=== PATIENT | male | born 1950 | race Caucasian/White ===

== ENCOUNTER 2018-04-18 17:17 | Inpatient (IN) | payer MEDICARE, OTHER ==
[2018-04-18] MEDS ORDERED: NS 0.9% 1000 ML* 1,000 ML IV ONE (17:41)
[2018-04-18] MEDS ORDERED: Morphine INJ* 2 MG/ML 1 ML SYRINGE (TWO MG - NEW SYRINGE VERSION) IV ONE (17:41)
--- NOTE | 2018-04-18 17:47 | ED ---
Abdominal Pain/Male - HPI Summary HPI Summary: This is scribe Alireza Muellerdanny documenting for attending Pola Ivy MD. Patient is a 67 y/o M w/ c/o abdominal pain onsetting 2 days ago. Patient went to [facility] where he had an ultrasound and was sent to ED for further work-up. In room, pain is rated 7/10. Pain is noted to be located at RUQ with no radiation to other areas. Patient notes nausea but denies V/D, fever, chills , constipation. He denies abdominal surgeries. Patient denies HTN, HLD, diabetes , CA and CAD. He states he had surgery for a deviated septum, vasectomy. Patient denies smoking and drug use but drinks occasionally. FHx of HTN, HLD, and diabetes is noted. Allergies and home medications are reviewed. - History of Current Complaint Chief Complaint: EDAbdPain Stated Complaint: ABD PAIN Time Seen by Provider: 04/18/18 17:37 Hx Obtained From: Patient Onset/Duration: Lasting Days - 2 days ago Timing: Constant Severity Currently: Severe Pain Intensity: 7 Pain Scale Used: 0-10 Numeric - 7/10 Location: Discrete At: RUQ Radiates: No Aggravating Factor(s): Nothing Alleviating Factor(s): Nothing Associated Signs And Symptoms: Positive: Nausea, Other - NEGATIVE: chills. Negative: Fever, Constipation, Vomiting, Diarrhea - Allergies/Home Medications Allergies/Adverse Reactions: Allergies Allergy/AdvReac Type Severity Reaction Status Date / Time iodine Allergy Unknown Verified 04/18/18 17:23 Reaction Details shellfish derived Allergy Unknown Verified 04/18/18 17:23 Reaction Details Home Medications: Home Medications Aspirin [Adult Aspirin Regimen] 81 mg PO DAILY 04/18/18 [History Confirmed 04/18] Ibuprofen [Advil] 200 mg PO DAILY 04/18/18 [History Confirmed 04/18/18] PMH/Surg Hx/FS Hx/Imm Hx Endocrine/Hematology History: Reports: Other Endocrine/Hematological Disorders - NEGATIVE: HLD Denies: Hx Diabetes Cardiovascular History: Denies: Hx Coronary Artery Disease, Hx Hypertension, Hx Myocardial Infarction - Surgical History Surgery Procedure, Year, and Place: vasectomy, surgery for deviated septum Infectious Disease History: No Infectious Disease History: Denies: Traveled Outside the [place] in Last 30 Days - Family History Known Family History: Positive: Hypertension, Diabetes, Other - HLD Review of Systems Negative: Fever, Chills Positive: Abdominal Pain - RUQ, Nausea, Other - NEGATIVE: constipation. Negative: Vomiting, Diarrhea All Other Systems Reviewed And Are Negative: Yes Physical Exam - Summary Physical Exam Summary: VITAL SIGNS: Reviewed. GENERAL: Patient is a well-developed and nourished male who is lying comfortable in the stretcher. Patient is not in any acute respiratory distress. HEAD AND FACE: Normocephalic and atraumatic. EYES: PERRLA, EOMI x 2, No injected conjunctiva. EARS: Hearing grossly intact. Ear canals and tympanic membranes are WNL. MOUTH: Oropharynx within normal limits. NECK: Supple, trachea is midline, no adenopathy, no JVD. CHEST: Symmetric, no tenderness at palpation LUNGS: Clear to auscultation bilaterally. No wheezing or crackles. CVS: RRR, S1 and S2 present, no murmurs or gallops appreciated. ABDOMEN: Soft, RUQ tenderness, Lee's signs are present. No signs of distention. Positive bowel sounds. No rebound no guarding, and no masses palpated. No abdominal bruit or pulsations. EXTREMITIES: FROM in all major joints, no edema, no cyanosis or clubbing. NEURO: Alert and oriented x 3. No acute neurological deficits. Speech is normal. SKIN: Dry and warm Triage Information Reviewed: Yes Vital Signs On Initial Exam: Initial Vitals Temp Pulse Resp BP Pulse Ox 101.1 F 80 20 157/92 98 04/18/18 17:19 04/18/18 17:19 04/18/18 17:19 04/18/18 17:19 04/18/18 17:19 Vital Signs Reviewed: Yes Diagnostics - Vital Signs Vital Signs Temp Pulse Resp BP Pulse Ox 04/18/18 17:19 101.1 F 80 20 157/92 98 - Laboratory Result Diagrams: 04/18/18 17:49 04/18/18 17:49 Lab Statement: Any lab studies that have been ordered have been reviewed, and results considered in the medical decision making process. - EKG 1750 Cardiac Rate: NL - Rate is 75 BPM EKG Rhythm: Sinus Rhythm EKG Interpretation: no ST elevation; RBBB Abdominal Pain Fem Course/Dx - Course Assessment/Plan: This patient is a 67-year-old male who presents to the emergency room after he was transferred from the primary care physicians office with a chief complaint of having right upper quadrant pain. Patient reports that he had an ultrasound that he was sent here for further workup and management. The patient reports that the pain started yesterday and has worsened. Patient has nausea without vomiting. Patient denies any fever or chills. Test results shows a white blood cell count of 12.5, glucose of 124, total bili 1.4, CRP of 141, amylase 23 and lipase is less than 10. Right upper quadrant ultrasound impression: Distended gallbladder with sludge and possible stone in the gallbladder neck, there was a positive sonographic [place] sign rescind the possibility of acute cholecystitis. Possibly nonobstructing right renal calculus. In the ER course the patient was given IV fluids. Dr. Su from surgery came and assessed the patient immediately and he accepted the patient admission. The patient is hemodynamically stable, alert and oriented 3. - Diagnoses Provider Diagnoses: Acute cholecystitis - Provider Notifications Discussed Care Of Patient With: Erasto Su Time Discussed With Above Provider: 18:00 Instructed by Provider To: Other - Dr. Su reviewed patient and discussed the case with Dr. Ivy at 18:00. Dr. Su [place] [facility] [place]. Discharge - Sign-Out/Discharge Documenting (check all that apply): Patient Departure - admit - Discharge Plan Condition: Stable Disposition: ADMITTED TO [facility]
[2018-04-18 17:59] LABS: ABS Basophils 0.1 10^3/ul (0-0.2); ABS Eosinophils 0.1 10^3/ul (0-0.6); ABS Lymphocytes 1.2 10^3/ul (1.0-4.8); ABS Monocytes 0.9 10^3/ul (0-0.8); ABS Neutrophils 10.3 10^3/ul (1.5-7.7); ABS Nucleated RBC 0 10^3/ul; Eosinophil % 0.5 % (0-6); Hematocrit 44 % (42-52); Lymphocyte % 9.3 % (25-47); Mean Corpuscular HGB Conc 34 g/dl (31-36); Mean Corpuscular Hemoglobin 29 pg (27-31); Mean Corpuscular Volume 87 fL (80-94); Nucleated Red Blood Cells % 0; Platelet Count 180 10^3/ul (150-450); Red Cell Distribution Width 13 % (10.5-15); White Blood Count 12.5 10^3/ul (3.5-10.8)
[2018-04-18 18:17] LABS: EGFR Non-African American 68.9 (>60)
[2018-04-18] MEDS ORDERED: Acetaminophen TAB* 325 MG PO ONE (18:31)
[2018-04-18] MEDS ORDERED: Piperacillin/Tazobac ADVAN(*) 3.375 GM in NS 0.9% 100 ML* 100 ML IVPB ONE ×4 (18:32)
[2018-04-18] MEDS ORDERED: Ondansetron INJ* 2 MG/ML VIAL IV PRN (18:32)
[2018-04-18] MEDS ORDERED: Zosyn per Pharmacy* NOTE FOLLOW UP SCH (19:00)
[2018-04-18] MEDS: NS 0.9% 1000 ML* 1,000 ML IV SCH (19:55)
--- NOTE | 2018-04-18 21:27 | HP ---
CC: [facility]; Mesfin Nunez MD, [facility] ADMISSION HISTORY AND PHYSICAL: DATE OF ADMISSION: 04/18/18 REASON FOR ADMISSION: Right upper quadrant abdominal pain with acute calculous cholecystitis. HISTORY OF PRESENT ILLNESS: Mr. Tavares Lizama is a healthy 67-year-old gentleman, who on Saturday night developed some epigastric and right upper quadrant abdominal pain radiated through to his back. This persisted and worsened over the next 48 hours and he presented to his primary care provider's office, Dr. Nunez today where he was seen and sent for an ultrasound of his gallbladder. I did review these images. This shows a thickened gallbladder wall with a positive Lee sign. There was noted to be gallbladder sludge as well as a possible stone in the gallbladder neck. Common bile duct measured 0.3 mm in diameter. In addition, he says about 4 or 5 times over the past year or so he has had episodes of epigastric pain mainly at night after eating that would last several hours and then resolve. He never sought medical care for this and in between episodes he was completely asymptomatic. He was noted to have a temperature of 101 in the emergency room and right upper quadrant abdominal discomfort. Laboratory values included a white blood cell count of 12,500 and with a mild elevation of his total bilirubin to 1.4 with a C-reactive protein of 141. Lipase was less than 10. Surgical consultation was obtained. PAST MEDICAL HISTORY: Unremarkable. PAST SURGICAL HISTORY: Vasectomy. ALLERGIES: He is allergic to SHELLFISH and IODINE. 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 He is . He does not use tobacco. He drinks alcohol 4 to 5 beers per week. REVIEW OF SYSTEMS: Cerebrovascular: No dizziness or visual disturbances. Cardiovascular: No chest pain, shortness of breath. Pulmonary: No wheezing or hemoptysis. GI: As per above. He does state in the past year and half he has had 4 to 5 episodes of epigastric and right upper quadrant abdominal pain mainly at night. It lasts several hours, but it resolves. PHYSICAL EXAMINATION GENERAL: He is a slender male, appears to be in no apparent distress. VITAL SIGNS: Temperature 101.1, pulse 80, blood pressure 157/92, oxygen saturation 98%. HEENT: Sclerae are anicteric. Oral mucosa is slightly dry. LUNGS: Clear to auscultation with normal respiratory effort. HEART: Regular rate and rhythm without murmurs, rubs, or gallops. ABDOMEN: Soft and slightly distended. No prior surgical incisions. He has tenderness in the right upper quadrant with some voluntary guarding. There is no mass noted. He has no generalized peritoneal signs. PSYCHIATRIC: He is awake, alert, and oriented x3. He has normal judgement and insight. IMPRESSION: Acute calculous cholecystitis. The patient has a leukocytosis, mild elevation in total bilirubin I suspect due to the inflammation. The ultrasound has been reviewed. I discussed these findings with the patient and his and I would recommend admission tonight with initiation of IV antibiotics, IV fluids and keeping him n.p.o. after midnight. I would recommend proceeding with a laparoscopic cholecystectomy tomorrow for definitive treatment of his acute cholecystitis. I discussed the procedure with him and the risks of, but not limited to bleeding , infection, intraabdominal abscess formation, injury to peritoneal and retroperitoneal structures, possibility of bile duct injury requiring further reconstruction, bile leak, abscess, possibility of an open procedure in this situation, the risks of anesthesia, deep vein thrombosis, hospital stay and recovery times were all explained. PLAN: 1. Plan will be admission to the surgical stay unit. 2. We will start him on IV antibiotics. 3. We will keep him n.p.o. after midnight, he will be allowed clear liquids until then. 4. Surgery will be planned in the morning, depending on the available operating room time. [id number]/[facility] #: [id number] MTDD
[2018-04-18] MEDS: ZOSYN 3.375 GM Q8H per EXTENDED INFUSION IVPB SCH ×2 (23:50)
[2018-04-19] MEDS: NS 0.9% 1000 ML* 1,000 ML IV SCH ×3 (03:42→19:53)
[2018-04-19 04:18] LABS: Urine Appearance Clear; Urine Blood Negative (Negative); Urine Color Yellow; Urine Ketones 1+ (Negative); Urine Protein Negative (Negative); Urine Specific Gravity 1.026 (1.010-1.030); Urine Urobilinogen Negative (Negative)
[2018-04-19] MEDS: Morphine INJ* 2 MG/ML 1 ML SYRINGE (TWO MG - NEW SYRINGE VERSION) IV PRN ×2 (04:23→07:31)
[2018-04-19] MEDS ORDERED: Bupivacaine 0.25% W/EPI* 10 ML SDV ONE (07:34)
[2018-04-19] MEDS ORDERED: Midazolam* 1 MG/ML 2 ML VIAL (2 MG) ONE (07:35)
[2018-04-19] MEDS: ZOSYN 3.375 GM Q8H per EXTENDED INFUSION IVPB SCH ×6 (07:35→23:44)
[2018-04-19] MEDS ORDERED: fentaNYL* 50 MCG/ML 2 ML VIAL (100 MCG VIAL) ONE (07:35)
[2018-04-19] MEDS ORDERED: Rocuronium* 10 MG/ML VIAL ONE (07:35)
[2018-04-19] MEDS ORDERED: Dexamethasone IV* 4 MG/ML 1 ML (4 MG) ONE (07:36)
[2018-04-19] MEDS ORDERED: Propofol* 10 MG/ML 20 ML BTL IV PUSH ONE (07:36)
[2018-04-19] MEDS ORDERED: Ondansetron INJ* 2 MG/ML VIAL ONE (07:36)
[2018-04-19] MEDS ORDERED: Famotidine IV* 10 MG/ML 2 ML (20 mg) ONE (07:36)
[2018-04-19] MEDS ORDERED: Succinylcholine* 20 MG/ML 10 ML VIAL ONE (07:40)
[2018-04-19] MEDS ORDERED: Lidocaine 1% INJ* 10 MG/ML 30 ML SDV ONE (07:40)
[2018-04-19] MEDS ORDERED: Sugammadex * 200 MG/2 ML VIAL IV PUSH ONE (08:59)
[2018-04-19] MEDS ORDERED: Naloxone* 0.4 MG/ML 1 ML VIAL IV PRN (09:13)
[2018-04-19] MEDS ORDERED: DiMENhydriNATE IV* 50 MG/ML VIAL IV PUSH PRN (09:13)
[2018-04-19] MEDS ORDERED: Ketorolac INJ* 30 MG/ML 1 ML VIAL ONE (09:13)
[2018-04-19] MEDS ORDERED: fentaNYL* 50 MCG/ML 2 ML VIAL (100 MCG VIAL) IV PRN (09:13)
[2018-04-19] MEDS ORDERED: HYDROmorphone INJ* 0.5 MG/0.5 ML SYRINGE IV PRN (09:13)
--- NOTE | 2018-04-19 09:52 | BRIEFOPN ---
Brief Operative Note - Surgery Procedures: OPERATIVE REPORT PRE-OP: Acute calculous cholecystitis POST-OP: Same PROCEDURE: Laparoscopic cholecystectomy SURGEON: MD Sharlene ANESTHESIA:Local , General Dr. Lira ASST: Mj Chávez MD IVF: 1 liter crystalloid EBL: Min SPECIMEN: Gallbladder DRAIN: #10 ISABELLA in RUQ abdomen WOUND CLASS: 4 COMPLICATIONS: none TO PACU
[2018-04-19] MEDS: oxyCODONE/Acetamin 5/325 MG* TAB PO PRN ×3 (12:14→22:07)
[2018-04-19] MEDS ORDERED: Ketorolac INJ* 15 MG/ML 1 ML VIAL IV PUSH ONE (14:00)
[2018-04-19 21:08] LABS: INR 1.27 (0.77-1.02)
[2018-04-19] MEDS: Heparin VIAL(*) 5000 UNITS/ML VIAL (FIVE THOUSAND) SUBCUT SCH (22:02)
--- NOTE | 2018-04-20 02:43 | OP ---
CC: Dr. Mesfin Nunez, [facility] * DATE OF OPERATION: 04/19/18 - ROOM #338 DATE OF : 50 SURGEON: Erasto Su MD [employer] SUPERVISOR: Johnathon Chávez MD ANESTHESIOLOGIST: Dr. Lira. ANESTHESIA: General and local. PRE-OP DIAGNOSIS: Acute calculous cholecystitis. POST-OP DIAGNOSIS: Acute calculous cholecystitis. OPERATIVE PROCEDURE: Laparoscopic cholecystectomy. ESTIMATED BLOOD LOSS: Minimal. IV FLUIDS: 1 L of crystalloid. WOUND CLASSIFICATION: IV. DRAINS: #10 ISABELLA drain in the right upper quadrant. SPECIMENS: Gallbladder. COMPLICATIONS: None. DESCRIPTION OF PROCEDURE: Written informed consent was obtained, the abdomen was marked with indelible ink and preoperative antibiotics were administered. The patient was taken to the operating room and placed in a supine position. Sequential compression devices and a warming blanket were applied. General anesthesia was administered and abdomen was prepped and draped in the usual sterile fashion. Time-out verification was completed. Initially, a small transverse incision was made just above the umbilicus at the midline and the peritoneal cavity was entered under direct vision. A 12-mm blunt port was inserted and the abdomen was insufflated to 15 mmHg. Under direct vision, an 11-mm epigastric port and two 5-mm ports were placed on the right side of the abdominal wall. The gallbladder was identified. There was omentum that was adherent to it, which was inflamed and consistent with acute calculous cholecystitis. The gallbladder was distended and greyish in color and its wall was edematous and there was pericholecystic fluid. We were unable to adequately grasp the gallbladder due to its distension. Thus , an 18-gauge spinal needle was used to decompress the gallbladder of about 50 to 60 cc of white purulent-appearing fluid was aspirated. The gallbladder was then grasped and elevated above the liver bed. The omentum was taken down bluntly down towards the infundibulum and we were able to with care dissect the inflamed peritoneum along the medial and lateral aspects of the infundibular portion of the gallbladder using a combination of blunt and sharp dissection with intermittent cautery. The cystic duct and cystic artery were then carefully identified as they entered the gallbladder. The cystic duct was not dilated. I took a considerable portion of the inferior part of the gallbladder off the liver bed using the critical view technique through the edematous tissue to assure myself of these 2 structures. Both the cystic duct and artery were then triply clipped and divided. Gallbladder was removed from the liver bed mainly using the suction tip as well as cautery. It should be noted that there was some leakage of the purulent turbid bile but no stones were left behind in the abdominal cavity. Gallbladder was then placed in an Endo Catch bag and brought out through the epigastric incision. The liver bed was then thoroughly irrigated. There were areas of bleeding from the liver surface, which were controlled with cautery. Once hemostasis was assured, the #10 ISABELLA drain was placed in the right quadrant underneath the liver bed and brought out through the lateral right abdominal stab wound. This was sutured to the skin with 3-0 Prolene suture. All the ports were removed under direct vision of the camera. The umbilical fascia was closed with interrupted 0 Vicryl suture. The skin at all 3 incisions was approximated with subcuticular 4-0 Vicryl suture. Steri-Strips were applied. The patient tolerated the procedure well and was taken to the recovery room in stable condition. [id number]/[facility] #: [id number] COTY
[2018-04-20] MEDS: NS 0.9% 1000 ML* 1,000 ML IV SCH ×2 (04:02→20:12)
[2018-04-20] MEDS: oxyCODONE/Acetamin 5/325 MG* TAB PO PRN ×4 (04:05→22:36)
[2018-04-20] MEDS: Heparin VIAL(*) 5000 UNITS/ML VIAL (FIVE THOUSAND) SUBCUT SCH ×3 (06:12→22:34)
--- NOTE | 2018-04-20 08:18 | PN ---
Progress Note - Progress Note Date of Service: 04/20/18 Note: POD#1 s/p lap nuzhat Afeb, VS noted Voiding Zina po's Min pain ISABELLA mod amt, non-bilious Abd soft, min tender, non-dist Plan: Cont ISABELLA and iv abx for acute cholecystitis Increase diet Poss disch 04/21
[2018-04-20] MEDS: ZOSYN 3.375 GM Q8H per EXTENDED INFUSION IVPB SCH ×6 (08:24→23:36)
[2018-04-21] MEDS: NS 0.9% 1000 ML* 1,000 ML IV SCH ×2 (04:09→11:40)
[2018-04-21] MEDS: Heparin VIAL(*) 5000 UNITS/ML VIAL (FIVE THOUSAND) SUBCUT SCH (05:40)
[2018-04-21] MEDS: Acetaminophen TAB* 325 MG PO PRN ×2 (05:46→11:42)
[2018-04-21] MEDS: ZOSYN 3.375 GM Q8H per EXTENDED INFUSION IVPB SCH ×2 (07:52)
[2018-04-21 12:08] VITALS: BP 121/52
--- NOTE | 2018-04-21 13:27 | PN ---
Progress Note - Progress Note Date of Service: 04/21/18 SOAP: Subjective: Continues to feel better-pain is adequately controlled He is tolerating regular food, had BM this morning Ambulating in halls Objective: Temp Pulse Resp BP Pulse Ox 98.4 F 67 16 121/52 98 04/21/18 11:13 04/21/18 11:13 04/21/18 11:13 04/21/18 11:13 04/21/18 11:13 Intake & Output 04/19/18 04/20/18 04/21/18 04/22/18 06:59 06:59 06:59 06:59 Intake Total 1370 6332 2070 360 Output Total 325 1405 270 Balance 1045 4927 1800 360 Weight 208 lb Intake: IV Fluids 980 4082 1210 0.9 125 ABX - ZOSYN 100 227 NS (0.9%) 980 2957 983 lr 900 IVPB 190 220 ABX - ZOSYN 190 220 Oral 200 2030 860 360 Output: ISABELLA #1 355 70 Urine 325 1050 200 Other: Estimated Void Large Large Medium Date of Last Bowel 04/17/18 Movement # Voids 1 1 PEX: Comfortable Lungs are clear Abd is soft and non-distended. Incisions are clean and dry. ISABELLA in place with serosanguinous fluid in bulb Assessment: POD#2 s/p lap choly for acute calculous cholecystitis Plan: D/C home Oral abx ISABELLA drain in Office follow up this week Instructions given.
--- NOTE | 2018-04-22 05:12 | DS ---
CC: Dr. Nunez * DISCHARGE SUMMARY: DATE OF ADMISSION: 04/18/18. DATE OF DISCHARGE: 04/21/18. PATIENT OF: Dr. Erasto Su.* (DICTATED BY EVAN HARRIS) ADMISSION DIAGNOSES: 1. Right upper quadrant abdominal pain. 2. Acute calculus cholecystitis. DISCHARGE DIAGNOSES: 1. Right upper quadrant abdominal pain. 2. Acute calculus cholecystitis. ADMITTING PHYSICIAN: Dr. Erasto Su. CONSULTATIONS: None. PROCEDURE: Laparoscopic cholecystectomy on 04/19/18. HISTORY OF PRESENT ILLNESS: Mr. Lizama is a pleasant 67-year-old gentleman, who presented to the emergency room on 04/18/18, with a 2-day's history of worsening epigastric and right upper quadrant abdominal pain. The patient notes that he developed some epigastric pain on Saturday that radiated to his right upper quadrant and through to his back. That pain has persisted and worsened over the following 2 days for which he presented to his primary care provider, Dr. Nunez, where he was seen in the office and then sent for an ultrasound of the gallbladder. The patient was seen by Dr. Su, who evaluated that ultrasound himself that was consistent with thickened gallbladder wall and positive Lee sign suggesting acute cholecystitis. There was also questionable gallbladder sludge as well as possible stone in the gallbladder neck. The patient also had laboratory workup that indicated leukocytosis with white count of 12,500. The patient also described associated fever up to 101 in the emergency room and also found to have mild elevation in his total bilirubin was 1.4 and elevated CRP of 141. Surgical consultation was obtained and gathering old information and physical exam findings, it was thought that the patient will be admitted under surgical services in anticipation for surgery on the following day. HOSPITAL COURSE: The patient was admitted under surgical services to the surgical stay unit on 04/18/18. He was kept n.p.o. after midnight and he started on IV antibiotic upon admission. He was taken to the operating room on the following morning where he had a laparoscopic cholecystectomy. After recovery, the patient was transferred back to the surgical floor for observation. It was found that he had inflammation surrounding his gallbladder and a ISABELLA drain was left after irrigation of the intraabdominal cavity. The patient continued to receive IV antibiotics during his admission. He started on clear liquid diet that he tolerated well and his diet eventually was advanced to low fat diet later that day. He was ambulatory, out of bed, and in stable condition. His ISABELLA drain showed some bloody output in the first day that gradually switched to a serous output prior to discharge. The patient continued to improve and he had no complaints of pain. He will be discharged to home today and will continue antibiotic therapy at home for the next 5 days and will follow up with Dr. Su by the end of the week for drain removal. All of the discharge instructions was given to him both orally and in written format. He received the training how to empty his ISABELLA drain on a daily basis and was advised to keep a log of the amount of output from the drain. DISCHARGE MEDICATIONS: Include: 1. Aspirin 81 mg p.o. daily. 2. Ibuprofen 200 mg p.o. daily. 3. Augmentin 875 mg p.o. b.i.d. 4. Percocet 5/325 one to two tablets p.o. q.6 hours as needed for pain. PROBLEM LIST: 1. Right upper quadrant abdominal pain. 2. Acute calculus cholecystitis, status post laparoscopic cholecystectomy on . EVAN HARRIS [id number]/[facility] #: [id number] MTDD
== END 2018-04-21 12:45 | disposition home or self-care (01) | DRG 419 ==
LOC: ED 17:17 → SSU 18:30 → OBSVTOIN 04-19 15:10
PROVIDERS: ADMIT Surgery; ATTEND Surgery
PROC: 0FT44ZZ Resection of Gallbladder, Percutaneous Endoscopic Approach (ICD-10-PCS; principal; 2018-04-19 08:00)
DX: K80.00 Calculus of gallbladder with acute cholecystitis without obstruction (principal); R74.8 Abnormal levels of other serum enzymes; Z82.49 Family history of ischemic heart disease and other diseases of the circulatory system; Z83.3 Family history of diabetes mellitus; Z83.49 Family history of other endocrine, nutritional and metabolic diseases; Z91.013 Allergy to seafood; Z91.018 Allergy to other foods; Z98.52 Vasectomy status; Z72.89 Other problems related to lifestyle; Z79.82 Long term (current) use of aspirin; J02.9 Acute pharyngitis, unspecified
CPT/HCPCS: 36415; 76700; 76705; 80053; 81003; 82150; 82248; 83605; 83690; 85025; 85610; 86140; 86803; 87086; 88304; 93005; 99284; A9270-GY; G0378; J0330; J1100; J1644; J1885; J2250; J2270; J2405; J2543; J2704; J3010

== ENCOUNTER 2019-05-26 17:50 | Emergency (ER) | payer MEDICARE, OTHER ==
--- NOTE | 2019-05-26 20:14 | UC ---
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 he used to do 90 push ups daily pain worse with bending and lifting no bowel or bladder dysfunction no hx of CA He has been to an accupunturist and chiropracter without help - History of Current Complaint Chief Complaint: UCBackPain Stated Complaint: BACK PAIN Time Seen by Provider: 05/26/19 19:52 Hx Obtained From: Patient Onset/Duration: Sudden Onset, Lasting Weeks Timing: Constant Severity Initially: Moderate Severity Currently: Moderate Pain Intensity: 6 Pain Scale Used: 0-10 Numeric Back Pain: Is Diffuse - see image Character: Aching, Throbbing, Spasmodic Aggravating Factor(s): Movement, Bending Alleviating Factor(s): Rest Associated Signs And Symptoms: Positive: Negative Full Body (No Head): 1 - tender here 2 - pain here - Allergies/Home Medications Allergies/Adverse Reactions: Allergies Allergy/AdvReac Type Severity Reaction Status Date / Time iodine Allergy Unknown Verified 05/26/19 18:12 Reaction Details shellfish derived Allergy Unknown Verified 05/26/19 18:12 Reaction Details PMH/Surg Hx/FS Hx/Imm Hx Previously Healthy: Yes - Surgical History Surgical History: Yes Surgery Procedure, Year, and Place: Vasectomy, surgery for deviated septum - Family History Known Family History: Positive: Hypertension, Diabetes, Other - HLD - Social History Alcohol Use: Weekly Substance Use Type: None Smoking Status (MU): Never Smoked Tobacco - Immunization History Most Recent Influenza Vaccination: Not indicated Most Recent Pneumonia Vaccination: Unknown Review of Systems All Other Systems Reviewed And Are Negative: Yes Constitutional: Positive: Negative Skin: Positive: Negative Eyes: Positive: Negative ENT: Positive: Negative Respiratory: Positive: Negative Cardiovascular: Positive: Negative Gastrointestinal: Positive: Negative Genitourinary: Positive: Negative Motor: Positive: Negative Neurovascular: Positive: Negative Musculoskeletal: Positive: Myalgia - lower back Neurological: Positive: Negative Psychological: Positive: Negative Physical Exam Triage Information Reviewed: Yes Appearance: Well-Appearing, No Pain Distress, Well-Nourished Vital Signs: Initial Vital Signs Temp 98.8 F 05/26/19 18:08 Pulse 67 05/26/19 18:08 Resp 20 05/26/19 18:08 BP 152/79 05/26/19 18:08 Pulse Ox 96 05/26/19 18:08 Vital Signs Reviewed: Yes Eyes: Positive: Conjunctiva Clear ENT: Positive: Hearing grossly normal. Negative: Nasal congestion, Nasal drainage, Tonsillar exudate, Trismus Neck: Positive: Supple, Nontender, No Lymphadenopathy Respiratory: Positive: Lungs clear, Normal breath sounds, No respiratory distress, No accessory muscle use, Respiratory distress Cardiovascular: Positive: RRR, No Murmur Abdomen Description: Positive: Nontender Musculoskeletal: Positive: Strength Intact, ROM Intact, No Edema Neurological: Positive: Alert Psychological Exam: Normal Skin Exam: Normal - Additional Comments tender L SI joint left paraspinous muscle tenderness Diagnostics - Radiology No standard instances Radiology Interpretation Completed By: ED Physician, Radiologist Summary of Radiographic Findings: 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 Back Pain Course/Dx - Differential Dx/Diagnosis Provider Diagnosis: Back pain, Elevated BP without diagnosis of hypertension Discharge ED - Sign-Out/Discharge Documenting (check all that apply): Patient Departure All imaging exams completed and their final reports reviewed: No - Discharge Plan Condition: Stable Disposition: HOME Prescriptions: Cyclobenzaprine (NF) [Cyclobenzaprine 5 MG (NF)] 5 mg PO TID PRN #21 tab PRN Reason: Spasms - Back Patient Education Materials: Low Back Strain (ED) Referrals: Mesfin Nunez MD [Primary Care Provider] - 1 Week Additional Instructions: aleve 2 pills twice daily muscle relaxant may cause drowsiness PT consult official xr readings pending - Billing Disposition and Condition Condition: STABLE Disposition: Home
[2019-05-26 20:38] VITALS: BP 171/74
[2019-05-26] MEDS ORDERED: Cyclobenzaprine TAB* 10 MG PO ONE (21:09)
--- NOTE | 2019-05-27 08:01 | UC ---
- Progress Note Progress Note: Reviewed radiology read of films of SI joint and lumbar spine. No change in interpretation. Course/Dx - Diagnoses Provider Diagnoses: Back pain, Elevated BP without diagnosis of hypertension Discharge ED - Sign-Out/Discharge Documenting (check all that apply): Patient Departure All imaging exams completed and their final reports reviewed: Yes - Discharge Plan Condition: Stable Disposition: HOME Prescriptions: Cyclobenzaprine (NF) [Cyclobenzaprine 5 MG (NF)] 5 mg PO TID PRN #21 tab PRN Reason: Spasms - Back Patient Education Materials: Low Back Strain (ED) Referrals: Mesfin Nunez MD [Primary Care Provider] - 1 Week Additional Instructions: aleve 2 pills twice daily muscle relaxant may cause drowsiness PT consult official xr readings pending - Billing Disposition and Condition Condition: STABLE Disposition: Home
== END 2019-05-26 21:24 | disposition home or self-care (01) ==
LOC: UCEAST 17:50
DX: M54.5 Low back pain (principal); R03.0 Elevated blood-pressure reading, without diagnosis of hypertension
CPT/HCPCS: 72110; 72202; 99212; A9270-GY; G0463